=== PATIENT | female | born 1990 | race African-American/Black ===

== ENCOUNTER 2016-11-06 11:16 | Emergency (ER) | payer OTHER ==
[2016-11-06 11:26] VITALS: BP 122/82; PULSE 72; TEMP 98; BMI 19.3
--- NOTE | 2016-11-06 11:29 | PDOC ---
History of Present Illness - General History Source: Patient, Parent(s) (Father) - History of Present Illness Initial Comments: 11/06/16 11:55 26 year old female was sent by Dr. Nieves to rule out DVT as Homans sign was positive. A/c to the patient, she has been having B/L foot pain since 2 months, burning sensation once the foot touches the ground. Pain is worse when she stands or sit for a long time, gets numbness and tingling sensation over her thighs. Patient reports to have noticed swelling over the shins, bruises and "vein popping out" since a week. She visited Ortho and Neuro for disc herniation which was diagnosed 4 years ago but hasn't visited recently. Patient would like to go to a Project Drilling Engineer to rule out immunologic disorder. Denies chest pain, sob, cough, palpitation, abdominal pain, nausea or vomiting. Bowel/Bladder habit normal. Sleep/Appetite Normal. Past Medical Hx: Anxiety (not under meds); Herniated disc, Migraine requiring hospitalization Allergies: NKDA Past Surgical: Removal of cyst in the left breast. Social: Never smoked. Drinks alcohol occasionally. No use of illicit drug. Contraception: IUD placed 4 years ago. Has 2 kids 10 yrs and 4 yrs old. Occupation: Works at [employer]. PCP: Dr. Darron Dueñas. 11/06/16 12:09 11/06/16 12:13 <Jocelyn Ghosh - Last Filed: 11/06/16 12:13> <Dottie Donnelly - Last Filed: 11/06/16 13:07> - General Chief Complaint: Pain Stated Complaint: PCP SENT, LEG PAIN Time Seen by Provider: 11/06/16 11:29 Past History - Past Medical History Asthma: No Cancer: No Cardiac Disorders: No Diabetes: No HTN: No Suicide Attempt (Hx): No Seizures: No Thyroid Disease: No Other medical history: migraines, back problems - Reproductive History (#): 2 Para: 2 - Immunization History Immunization Up to Date: Yes - Psycho/Social/Smoking Cessation Hx Anxiety: No Suicidal Ideation: No Smoking Status: No Smoking History: Never smoked Have you smoked in the past 12 months: No Number of Cigarettes Smoked Daily: 0 Information on smoking cessation initiated: No Hx Alcohol Use: No Drug/Substance Use Hx: No Substance Use Type: None Hx Substance Use Treatment: No <Rosangela Ghoshny - Last Filed: 11/06/16 12:13> <Dottie Donnelly - Last Filed: 11/06/16 13:07> - Past Medical History Allergies/Adverse Reactions: Allergies Allergy/AdvReac Type Severity Reaction Status Date / Time No Known Allergies Allergy Verified 11/06/16 11:21 Home Medications: Ambulatory Orders Cyclobenzaprine HCl [Flexeril -] 10 mg PO TID #21 tablet 02/04/16 Mobic 02/04/16 Review of Systems - Review of Systems Able to Perform ROS?: Yes Comments:: 11/06/16 12:03 CONSTITUTIONAL: Absent: fever, chills, diaphoresis, generalized weakness, malaise, loss of appetite HEENT: Absent: rhinorrhea, nasal congestion, throat pain, throat swelling, difficulty swallowing, mouth swelling, ear pain, eye pain, visual Changes CARDIOVASCULAR: Absent: chest pain, syncope, palpitations, irregular heart rate, lightheadedness , peripheral edema RESPIRATORY: Absent: cough, shortness of breath, dyspnea with exertion, orthopnea, wheezing, stridor, hemoptysis GASTROINTESTINAL: Absent: abdominal pain, abdominal distension, nausea, vomiting, diarrhea, constipation, melena, hematochezia GENITOURINARY: Absent: dysuria, frequency, urgency, hesitancy, hematuria, flank pain, genital pain MUSCULOSKELETAL: Present: B/L leg pain Absent: myalgia, arthralgia, joint swelling SKIN: Absent: rash, itching, pallor HEMATOLOGIC/IMMUNOLOGIC: Absent: easy bleeding, easy bruising, lymphadenopathy, frequent infections ENDOCRINE: Absent: unexplained weight gain, unexplained weight loss, heat intolerance, cold intolerance NEUROLOGIC: Absent: headache, focal weakness or paresthesias, dizziness, unsteady gait, seizure, mental status changes, bladder or bowel incontinence PSYCHIATRIC: Absent: anxiety, depression, suicidal or homicidal ideation, hallucinations. <Jocelyn Ghosh - Last Filed: 11/06/16 12:13> *Physical Exam - Vital Signs Last Vital Signs Temp Pulse Resp BP Pulse Ox 98.0 F 72 18 122/82 100 11/06/16 11:22 11/06/16 11:22 11/06/16 11:22 11/06/16 11:22 11/06/16 11:22 - Physical Exam Comments: 11/06/16 12:05 PE: GENERAL: Awake, alert, and fully oriented, in no acute distress HEAD: No signs of trauma EYES: PERRLA, EOMI, sclera anicteric, conjunctiva clear ENT: Auricles normal inspection, hearing grossly normal, nares patent, oropharynx clear without exudates. Moist mucosa NECK: Normal ROM, supple, no lymphadenopathy, JVD, or masses LUNGS: Breath sounds equal, clear to auscultation bilaterally. No wheezes, and no crackles.. HEART: Regular rate and rhythm, normal S1 and S2, no murmurs, rubs or gallops ABDOMEN: Soft, nontender, normoactive bowel sounds. No guarding, no rebound. No masses UPPER EXTREMITIES: Normal range of motion, no edema. No clubbing or cyanosis. No cords, erythema, or tenderness Lower extremity: Few bruises over shins,Sensation intact,Tender to touch over B/L shins, Homans sign negative, normal range of motion. Straight leg raising test positive on the right leg NEUROLOGICAL: Cranial nerves II through XII grossly intact. Normal speech, normal gait SKIN: Warm, Dry, normal turgor, no rashes or lesions noted. <Jocelyn Ghosh - Last Filed: 11/06/16 12:13> - Vital Signs Last Vital Signs Temp Pulse Resp BP Pulse Ox 98.0 F 72 18 122/82 100 11/06/16 11:22 11/06/16 11:22 11/06/16 11:22 11/06/16 11:22 11/06/16 11:22 <Dottie Donnelly - Last Filed: 11/06/16 13:07> ED Treatment Course - RADIOLOGY Radiology Studies Ordered: Category Date Time Status DUPLEX VASCUL US-2LEGS [US] Stat Ultrasound 11/06/16 11:49 Completed <Dottie Donnelly - Last Filed: 11/06/16 13:07> Medical Decision Making - Medical Decision Making 11/06/16 12:09 26 year old female with significant past medical history of herniated disc (dx 4 yrs ago), anxiety( not under meds), migraine (requiring hospitalization) was sent by Dr. Nieves to rule out DVT as Homans sign was positive. A/P Leg pain-rule out DVT Ordered Doppler of B/L lower extremities Upon discharge will refer to Dr. Gillis. Patient wants to go to work @ 1pm. Plan: Discharge if Doppler is negative and to follow up with Dr. Gillis. <Jocelyn Ghosh - Last Filed: 11/06/16 12:13> *DC/Admit/Observation/Transfer <Jocelny Ghosh - Last Filed: 11/06/16 12:13> - Discharge Dispostion Admit: No <Dottie Donnelly - Last Filed: 11/06/16 13:07> Diagnosis at time of Disposition: Pain in both lower extremities - Discharge Dispostion Disposition: HOME Condition at time of disposition: Stable
--- NOTE | 2016-11-06 11:47 | PDOC ---
[id number] I have performed the following: I have examined & evaluated the patient, The case was reviewed & discussed with the resident, I agree w/resident's findings & plan, Exceptions are as noted - HPI HPI: 26 yo F currently being worked up as an outpatient for BLE pain/numbness presents with calf pain B/L. She has had the numbness for the past few months, but now developed pain to her feet. She has seen a neurologist in the past, but still does not have a diagnosis for the pain. She saw an director of blood, who found her to have calf tenderness, sent her for evaluation, possible DVT study. She has not yet seen a bakery technician. - Physicial Exam PE: GENERAL: Awake, alert, and fully oriented, in no acute distress HEAD: No signs of trauma EYES: PERRLA, EOMI, sclera anicteric, conjunctiva clear ENT: Auricles normal inspection, hearing grossly normal, nares patent, oropharynx clear without exudates. Moist mucosa NECK: Normal ROM, supple, no lymphadenopathy, JVD, or masses LUNGS: Breath sounds equal, clear to auscultation bilaterally. No wheezes, and no crackles HEART: Regular rate and rhythm, normal S1 and S2, no murmurs, rubs or gallops ABDOMEN: Soft, nontender, normoactive bowel sounds. No guarding, no rebound. No masses EXTREMITIES: Normal range of motion, no edema. No clubbing or cyanosis. No cords, erythema. +B/L calf tenderness. NEUROLOGICAL: Cranial nerves II through XII grossly intact. Normal speech, normal gait SKIN: Warm, Dry, normal turgor, no rashes or lesions noted. - Medical Decision Making 26 yo F presents with B/L leg pain, numbness. Suspect this may be neuropathy, possibly autoimmune disorder. Suspicion for DVT is low. DVT study was negative B /L. Stable for DC home. Referred her to rheumatology, as she has not yet seen one.
[2016-11-06] MEDS ORDERED: IBUPROFEN 600 MG TABLET (FP) PO ONE ×2 (13:13→13:35)
== END 2016-11-06 14:29 | disposition home or self-care (01) ==
LOC: JER 11:16
DX: M79.605 Pain in left leg (principal); M79.604 Pain in right leg; R20.8 Other disturbances of skin sensation
CPT/HCPCS: 93970-TC; 99282-25

== ENCOUNTER 2016-11-06 23:29 | Emergency (ER) | payer OTHER ==
[2016-11-06 23:55] VITALS: BP 123/82; PULSE 88; TEMP 97.2; BMI 22.6
--- NOTE | 2016-11-07 00:08 | PDOC ---
History of Present Illness - History of Present Illness Initial Comments: 11/07/16 00:25 Patient is a 26 year old female with significant medical hx of anxiety, migraines, disc herniation and chronic back pain who is presenting to the ED with left sided pain to her upper and lower extremities for 45 minutes prior to arrival. Patient was recently seen in the ED earlier today, sent by Dr. Nieves to rule out DVT for positive Homans sign; doppler was found negative for DVT ( see previous chart). This evening the patient went to take a shower when she felt her left sided extremities lock and began experiencing pain with movement. She states that she held onto a railing and was unable to release her nuclear engineering technician. The patient also complains of associated neck pain. She denies headache, nausea, vomiting, slurred speech, dizziness, or confusion. Patient was seen earlier today complaining of bilateral foot pain for two months and numbness/tingling to her thighs due to standing for long periods of time. Allergies: NKDA Past Surgical: Removal of cyst in the left breast. Social: Never smoked. Drinks alcohol occasionally. No use of illicit drug. Contraception: IUD placed 4 years ago. Has 2 kids: 10 yrs and 4 yrs old. Occupation: Works at [employer]. PCP: Dr. Darron Dueñas. <Siri Huynh - Last Filed: 11/07/16 00:25> <Carly Garrison - Last Filed: 11/07/16 02:32> - General Chief Complaint: Head/Neck problem Stated Complaint: NUMBNESS Time Seen by Provider: 11/06/16 23:45 Past History <Siri Huynh - Last Filed: 11/07/16 00:25> - Past Medical History Asthma: No Cancer: No Cardiac Disorders: No Diabetes: No HTN: No Suicide Attempt (Hx): No Seizures: No Thyroid Disease: No - Reproductive History (#): 2 Para: 2 - Immunization History Immunization Up to Date: Yes - Psycho/Social/Smoking Cessation Hx Anxiety: No Suicidal Ideation: No Smoking Status: No Smoking History: Never smoked Have you smoked in the past 12 months: No Number of Cigarettes Smoked Daily: 0 Hx Alcohol Use: No Drug/Substance Use Hx: No Substance Use Type: None Hx Substance Use Treatment: No <Carly Garrison - Last Filed: 11/07/16 02:32> - Past Medical History Allergies/Adverse Reactions: Allergies Allergy/AdvReac Type Severity Reaction Status Date / Time No Known Allergies Allergy Verified 11/06/16 23:54 Home Medications: Ambulatory Orders Cyclobenzaprine HCl [Flexeril -] 10 mg PO TID 11/06/16 Oxycodone HCl/Acetaminophen [Oxycodone-Acetaminophen 5-325] 1 each PO ONCE 11/06 Review of Systems - Review of Systems Comments:: 11/07/16 00:26 CONSTITUTIONAL: Absent: fever, chills, diaphoresis, generalized weakness, malaise, loss of appetite HEENT: Absent: rhinorrhea, nasal congestion, throat pain, throat swelling, difficulty swallowing, mouth swelling, ear pain, eye pain, visual changes CARDIOVASCULAR: Absent: chest pain, syncope, palpitations, irregular heart rate, lightheadedness , peripheral edema RESPIRATORY: Absent: cough, shortness of breath, dyspnea with exertion, orthopnea, wheezing, stridor, hemoptysis GASTROINTESTINAL: Absent: abdominal pain, abdominal distension, nausea, vomiting, diarrhea, constipation, melena, hematochezia GENITOURINARY: Absent: dysuria, frequency, urgency, hesitancy, hematuria, flank pain, genital pain MUSCULOSKELETAL: Present: neck pain, left upper and lower extremity pain, bilateral foot pain Absent: joint swelling SKIN: Absent: rash, itching, pallor HEMATOLOGIC/IMMUNOLOGIC: Absent: easy bleeding, easy bruising, lymphadenopathy, frequent infections ENDOCRINE: Absent: unexplained weight gain, unexplained weight loss, heat intolerance, cold intolerance NEUROLOGIC: Present: tingling to thighs Absent: headache, focal weakness or paresthesia, dizziness, unsteady gait, seizure, mental status changes, bladder or bowel incontinence. PSYCHIATRIC: Absent: anxiety, depression, suicidal or homicidal ideation, hallucinations <Román Huynha - Last Filed: 11/07/16 00:25> *Physical Exam - Vital Signs Last Vital Signs Temp Pulse Resp BP Pulse Ox 97.2 F L 88 18 123/82 100 11/06/16 23:54 11/06/16 23:54 11/06/16 23:54 11/06/16 23:54 11/06/16 23:54 - Physical Exam Comments: 11/07/16 00:29 GENERAL: Well developed, well nourished. Awake and alert. No acute distress. HEENT: Normocephalic, atraumatic. PERRLA, EOMI. No conjunctival pallor. Sclera are non- icteric. Moist mucous membranes. Oropharynx is clear. NECK: Supple. Full ROM. No JVD. Carotid pulses 2+ and symmetric, without bruits. No thyromegaly. No lymphadenopathy. CARDIOVASCULAR: Regular rate and rhythm. No murmurs, rubs, or gallops. Distal pulses are 2+ and symmetric. PULMONARY: No evidence of respiratory distress. Lungs clear to auscultation bilaterally. No wheezing, rales or rhonchi. ABDOMINAL: Soft. Non-tender. Non-distended. No rebound or guarding. No organomegaly. Normoactive bowel sounds. MUSCULOSKELETAL: Normal range of motion at all joints. No bony deformities or tenderness. No CVA tenderness. EXTREMITIES: No cyanosis. No clubbing. No edema. No calf tenderness. SKIN: Warm and dry. Normal capillary refill. No rashes. No jaundice. NEUROLOGICAL: Alert, awake, and fully oriented x 3. Appropriate. No objective sensory loss. No weakness. No slurred speech. No confusion. No facial droop. Cranial nerves 2- 12 intact. Normal speech. PSYCHIATRIC: Cooperative. Good eye contact. Appropriate mood and affect. <Siri Huynh - Last Filed: 11/07/16 00:25> - Vital Signs Last Vital Signs Temp Pulse Resp BP Pulse Ox 97.2 F L 88 18 123/82 100 11/06/16 23:54 11/06/16 23:54 11/06/16 23:54 11/06/16 23:54 11/06/16 23:54 <Carly Garrison - Last Filed: 11/07/16 02:32> ED Treatment Course - LABORATORY CBC & Chemistry Diagram: 11/07/16 00:25 11/07/16 00:25 <Carly Garrison - Last Filed: 11/07/16 02:32> Medical Decision Making - Medical Decision Making 11/07/16 02:17 wnwd 26 yo female with h/o leg and foot pain and intermittent numbness to her thighs for months-took a shower tonight and then dev severe right arm and leg pain - no objective neuro deficits -pt states her rt arm and too painful to bend -her symptsom improved w torafol and flexeril <Carly Garrison - Last Filed: 11/07/16 02:32> *DC/Admit/Observation/Transfer - Attestations Scribe Attestion: 11/07/16 00:31 Documentation prepared by Siri Huynh, acting as biomedical engineering technician for Carly Garrison MD. <Siri Huynh - Last Filed: 11/07/16 00:25> <Carly Garrison - Last Filed: 11/07/16 02:32> Diagnosis at time of Disposition: Acute pain of extremity - Discharge Dispostion Disposition: HOME Condition at time of disposition: Stable - Referrals Referrals: Yevgeniy Dueñas MD [Primary Care Provider] - - Patient Instructions Printed Discharge Instructions: DI for Musculoskeletal Pain Additional Instructions: please keep your appointment with your mold maker plastic molds NIH Stroke Scale - Last Known Well Date/Time & Onset Date Last Known Well: 11/06/16 Time Last Known Well: 23:00 - Initial Evaluation Level of consciousness: Alert Ask patient the month and their age: Answers both correctly Ask patient to open & close eyes; make fist and let go: Obeys both correctly Best gaze (horizontal eye movement): Normal Visual field testing: No visual field loss Facial paresis (Show teeth/raise eyebrows/close eyes tight): Normal symmetrical movement Motor Function: Left Arm: Normal Motor Function: Right Arm: Normal (extends arm 90 (or 45) degrees for 10 seconds without drift Motor Function: Left Leg: Normal (extends leg 30 degrees for 5 seconds without drift) Motor Function: Right Leg: Normal (extends leg 30 degrees for 5 seconds without drift) Limb Ataxia: No ataxia Sensory(Use pinprick test arms,legs,trunk,face/side to side): Normal Best language (Describe picture, name items, read sentences): No Aphasia Dysarthria (read several words): Normal articulation Extinction and Inattention: No abnormality - Total Score NIH Stroke Scale Score: 0 <Carly Garrison - Last Filed: 11/07/16 02:32>
[2016-11-07] MEDS ORDERED: CYCLOBENZAPRINE HCL 10 MG TABLET (FP) PO ONE (00:31)
[2016-11-07 00:32] LABS: BASOPHIL 0.4 % (0-2.0); EOSINOPHIL 1.8 % (0-4.5); MCH 29.2 pg (25.7-33.7); MCHC 33.9 g/dl (32.0-36.0); MEAN CELL VOLUME 86.2 fl (80-96); MEAN PLT VOLUME 9.5 fl (7.5-11.1); NEUTROPHILS 62.1 % (42.8-82.8); PLATELET COUNT 252 K/MM3 (134-434); RDW 14.3 % (11.6-15.6); WHITE BLOOD COUNT 10.2 K/mm3 (4.0-10.0)
[2016-11-07] MEDS ORDERED: CYCLOBENZAPRINE HCL 10 MG TABLET (FP) ONE (00:34)
[2016-11-07 00:49] LABS: INR 0.96 (0.82-1.09); PROTHROMBIN TIME (PATIENT) 10.5 SEC (9.98-11.88)
[2016-11-07 00:57] LABS: URINE APPEARANCE CLEAR; URINE BILIRUBIN NEGATIVE (NEGATIVE); URINE COLOR YELLOW; URINE GLUCOSE (UA) NEGATIVE (NEGATIVE); URINE KETONE TRACE (NEGATIVE); URINE LEUK ESTERASE NEGATIVE (NEGATIVE); URINE NITRITE NEGATIVE (NEGATIVE); URINE PROTEIN NEGATIVE (NEGATIVE); URINE UROBILINOGEN NEGATIVE E.U./dl (0.2-1.0)
[2016-11-07 00:58] LABS: URINE BLOOD 1+ (NEGATIVE)
[2016-11-07 01:06] LABS: ALBUMIN 4.4 g/dl (3.4-5.0); ALK PHOS 60 U/L (45-117); ANION GAP 10 (8-16); BILIRUBIN,TOTAL 0.3 mg/dL (0.2-1.0); CALCIUM 9.6 mg/dL (8.5-10.1); CO2 26 mmol/L (21-32); CREATININE 0.8 mg/dL (0.55-1.02); GLUCOSE,RANDOM 112 mg/dL (74-106); SGOT/AST 23 U/L (15-37); SGPT/ALT 36 U/L (12-78); TOT PROT 7.6 g/dl (6.4-8.2)
[2016-11-07 01:12] LABS: URINE HYALINE CAST 1 /lpf; URINE MUCUS MODERATE; URINE RBC 2 /hpf (0-3); URINE WBC 2 /hpf (3-5)
[2016-11-07] MEDS ORDERED: KETOROLAC TROMETHAMINE 60 MG/2 ML VIAL IM ONE (01:28)
[2016-11-07] MEDS ORDERED: KETOROLAC TROMETHAMINE 60 MG/2 ML VIAL ONE (01:31)
== END 2016-11-07 02:41 | disposition home or self-care (01) ==
LOC: JER 23:29
PROC: 3E0233Z Introduction of Anti-inflammatory into Muscle, Percutaneous Approach (ICD-10-PCS; principal; 2016-11-06)
DX: M79.601 Pain in right arm (principal); M79.604 Pain in right leg
CPT/HCPCS: 36415; 80053; 81003; 81015; 84703; 85025; 85610; 96372; 99283-25

== ENCOUNTER 2019-03-06 10:39 | Emergency (ER) | payer OTHER | END 2019-03-06 17:30 | disposition home or self-care (01) | LOC: JER 10:39 ==

== ENCOUNTER 2019-11-18 21:55 | Emergency (ER) | payer OTHER ==
[2019-11-18 22:01] VITALS: BP 140/98; PULSE 72; TEMP 98.1; BMI 25.8
--- NOTE | 2019-11-19 00:25 | PDOC ---
Documentation entered by Ifeoma Nix SCRIBE, acting as scribe for Lynn Bryan MD. Lynn Bryan MD: This documentation has been prepared by the sarahibe, Ifeoma Nix SCRIBE, under my direction and personally reviewed by me in its entirety. I confirm that the documentation accurately reflects all work, treatment, procedures, and medical decision making performed by me. History of Present Illness - General Chief Complaint: Pain Stated Complaint: RIGHT EYELID SWELLING Time Seen by Provider: 11/18/19 21:56 History Source: Patient Exam Limitations: No Limitations - History of Present Illness Initial Comments: 11/18/19 22:33 The patient is a 29-year-old female with a past medical history significant for allergies for dust mites (recently on cefdinir) who presents to the emergency department with right eye swelling. The patient reports about a month ago she had a right eye stye, reports following up with PCP, who prescribed the patient erythromycin, and instructed the patient to apply a warm compress. The patient reports the swelling improved, however, she still had discharge from the eye.The patient denies following up with an opthamologist. The patient reports about a week ago the swelling returned, associated with a burning pain sensation to the eyes. The patient reports the pain severity increased today, prompting the ER visit. The patient reports applying a warm compress to the eye, without relief. The patient reports associated symptoms of a nodule felt in front of her right ear, which presented yesterday. Denies vision changes, ear pain, throat pain, fever, or chills. The patient reports about three weeks ago she was started on cefdinir by the training development director, for dust- mite allergies. The patient states she had symptoms of discomfort to the throat and foul breath and was prescribed medication. Allergies: Dust mites, NKDA Social history: Denies the use of tobacco, alcohol or recreational drugs. PCP: Dr. Augustina Dueñas. Past History - Past Medical History Allergies/Adverse Reactions: Allergies Allergy/AdvReac Type Severity Reaction Status Date / Time No Known Allergies Allergy Verified 11/18/19 21:56 Home Medications: Ambulatory Orders Bacitracin Ophthalmic Oint - 1 applic OD Q4H #1 tube 11/18/19 Asthma: No Cancer: No Cardiac Disorders: No COPD: No Diabetes: No HTN: No Seizures: No Thyroid Disease: No - Reproductive History (#): 2 Para: 2 - Immunization History Immunization Up to Date: Yes - Psycho Social/Smoking Cessation Hx Smoking Status: No Smoking History: Never smoked Have you smoked in the past 12 months: No Number of Cigarettes Smoked Daily: 0 Hx Alcohol Use: No Drug/Substance Use Hx: No Substance Use Type: None Hx Substance Use Treatment: No Review of Systems - Review of Systems Able to Perform ROS?: Yes Comments:: 11/18/19 22:29 CONSTITUTIONAL: Pt denies Fever, Chills, weakness. HEENT:+right eyelid pain and swelling, denies vision changes, sore throat RESPIRATORY: Denies cough, sob, hemoptysis CARDIAC: denies chest pain, palpitations, lightheadedness, leg swelling ABD/GI: denies abd pain, nausea, vomiting, blood per rectum, melena, diarrhea : denies dysuria, frequency, discharge MSK: denies back pain, joint swelling SKIN: denies bruising, erythema, rash NEUROLOGICAL: denies headache, numbness, focal weakness, tingling, ataxia, weakness HEMATOLOGICAL: denies anemia, easy bruising, easy bleeding. *Physical Exam - Vital Signs Last Vital Signs Temp Pulse Resp BP Pulse Ox 98.1 F 72 16 140/98 100 11/18/19 21:58 11/18/19 21:58 11/18/19 21:58 11/18/19 21:58 11/18/19 21:58 - Physical Exam 11/18/19 22:27 GENERAL: The patient is awake, alert, and fully oriented, in no acute distress. HEAD: Normal with no signs of trauma. EYES: +moderate erythema, edema and tenderness of the right upper eyelid, with a 2mm purulent area at the mid lash line, no drainage evident. No extended erythema or edema of the proximal portion of the eyelid, Pupils equal, round and reactive to light, extraocular movements intact, sclera anicteric, ENT: mild tenderness of the right sided preauricular lymph node. Ears normal, nares patent, oropharynx clear without exudates. Moist mucous membranes. SKIN: Warm, Dry, normal turgor, no rashes or lesions noted. Medical Decision Making - Medical Decision Making As noted above, this otherwise healthy 29-year-old woman presents with recurrent hordeolum of the right upper eyelid. She had similar symptoms of swelling, redness and pain of the eyelid about a month ago. Symptoms resolved after warm compresses were applied to the area and she used antibiotic ointment in the area. No drainage of abscess (either spontaneously or through incision and drainage procedure) occurred. Patient admits to using eye make-up and may have used old, contaminated products. Exam as noted above. Clinical presentation most consistent with recurrent hordeolum (patient states that swelling and maximum area of pain is in the same spot as last month) of the right upper eyelid. Although there is a tiny area of mid eyelash line that is more swollen and whitish, no easily drainable area is present. Patient has been advised to continue application of warm compresses; bacitracin ophthalmologic ointment should be applied to the eyelash line every 4 hours. Patient does not have an director of events currently: Referral information for Drs. [facility] given to the patient. She should call tomorrow for arrangement of follow-up with them. Patient cautioned that, in the future, she should discard eye make-up after using a product for 6 weeks, especially mascara. Discharge - Discharge Information Problems reviewed: Yes Clinical Impression/Diagnosis: Hordeolum externum right upper eyelid Condition: Stable Disposition: HOME - Additional Discharge Information Prescriptions: Bacitracin Ophthalmic Oint - 1 applic OD Q4H #1 tube - Follow up/Referral Referrals: Solis Hester MD [Staff Physician] - Call tomorrow - Patient Discharge Instructions Patient Printed Discharge Instructions: Hordeolum Additional Instructions: Warm compresses to right upper eyelid several times a day until seen by director of events Bacitracin eye ointment every 4 hours until seen by director of events Tylenol/Motrin/Aleve as needed for pain Do not use eye make-up until seen by director of events Call / (eye doctors) office in a.m. to arrange follow-up within the next 2 to 3 days Return to ER if you have increased redness/swelling/pain in eyelid or develop fever - Post Discharge Activity
== END 2019-11-18 22:23 | disposition home or self-care (01) ==
LOC: FER 21:55 → SUPCPDRO 21:55 → FER 22:23
DX: H00.011 Hordeolum externum right upper eyelid (principal)
CPT/HCPCS: 99283-25

== ENCOUNTER 2021-11-18 10:01 | Emergency (ER) | payer OTHER ==
[2021-11-18] MEDS ORDERED: IBUPROFEN 400 MG TABLET (FP) PO ONE ×2 (10:13→10:27)
[2021-11-18 10:21] VITALS: BP 119/82; PULSE 88; TEMP 97.8; BMI 26.6
== END 2021-11-18 12:26 | disposition home or self-care (01) ==
LOC: FER 10:01
DX: S39.012A Strain of muscle, fascia and tendon of lower back, initial encounter (principal); X50.0XXA Overexertion from strenuous movement or load, initial encounter
CPT/HCPCS: 72100-TC-FY; 99283-25